=== PATIENT | male | born 1975 | race Caucasian/White ===

== ENCOUNTER 2019-03-11 21:05 | Emergency (ER) | payer OTHER ==
[2019-03-11] MEDS ORDERED: HYDROCODONE/ACETAMINOPHEN 7.5-325 MG TABLET PO ONE (22:08)
[2019-03-11] MEDS ORDERED: CIPROFLOXACIN HCL 500 MG TABLET PO ONE (22:09)
[2019-03-11] MEDS ORDERED: DIPH/PERTUSS(ACELL)/TETANUS VAC/PF 0.5 ML SYR (>=10YO) IM ONE (22:11)
--- NOTE | 2019-03-11 22:11 | ER Document Report ---
ED Medical Screen (RME) - General Chief Complaint: Puncture Wound Stated Complaint: FOOT INJURY Time Seen by Provider: 03/11/19 22:08 Notes: Patient is a 43-year-old male who comes in today with chief complaint of redness and swelling in his right foot. Apparently he stepped on #8 nail about 4 days ago and extracted the nail by himself and continue to work on it. Coming in today because he is having increased swelling redness warmth and worsening pain. Worried about infection. Last tetanus was possibly 2011 but not sure. I have treated and performed a rapid initial assessment of this patient. A comprehensive ED assessment and evaluation of the patient, analysis of test results and completion of medical decision making process will be conducted by additional ED providers. PHYSICAL EXAMINATION: GENERAL: Well-appearing, well-nourished and in no acute distress. A&Ox4. Answers questions appropriately. LUNGS: Breath sounds clear to auscultation bilaterally and equal. No wheezes rales or rhonchi. HEART: Regular rate and rhythm without murmurs, rubs, gallops. Extremities: There is evidence of a puncture wound of the right foot. The dorsum of the right foot is red warm and diffusely tender. There is no subcut aneous crepitus noted NEUROLOGICAL: Normal speech, normal gait. PSYCH: Normal mood, normal affect. TRAVEL OUTSIDE OF THE [place] IN LAST 30 DAYS: No Physical Exam - Vital signs Vitals: Temp Pulse Resp BP Pulse Ox 98.0 F 102 H 20 139/84 H 97 03/11/19 21:24 03/11/19 21:24 03/11/19 21:24 03/11/19 21:24 03/11/19 21:24 Course - Vital Signs Vital signs: Temp Pulse Resp BP Pulse Ox 98.0 F 102 H 20 139/84 H 97 03/11/19 21:24 03/11/19 21:24 03/11/19 21:24 03/11/19 21:24 03/11/19 21:24
--- NOTE | 2019-03-11 23:43 | RADIOLOGY REPORT (SQ) ---
EXAM DESCRIPTION: XR FOOT 3 OR MORE VIEWS COMPLETED DATE/TME: 03/11/2019 22:08 CLINICAL HISTORY: 43 years, Male, r/o fb, osteo COMPARISON: None. NUMBER OF VIEWS: Three TECHNIQUE: Frontal, oblique, and lateral radiographs of the left foot were obtained. LIMITATIONS: None. FINDINGS: Mild first MTP joint arthrosis is noted, designated by joint space narrowing. Focal soft tissue swelling is noted about the plantar surface of the forefoot. Otherwise, no acute fracture or dislocation is evident. There is no evidence of periostitis or cortical resorption of bone. No obvious retained radiopaque foreign body is evident. 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 Specifically, no radiographic evidence of osteomyelitis. No definite retained radiopaque foreign body. However, not all foreign bodies are radiopaque. copyright 2010 [employer] All Rights Reserved
[2019-03-12] MEDS ORDERED: CEFTRIAXONE INJ 1000 MG VIAL IM ONE (00:51)
[2019-03-12] MEDS ORDERED: LIDOCAINE 1% INJ-PF (10 MG/ML) 30 ML SDV INJ ONE (00:51)
[2019-03-12] MEDS ORDERED: DOXYCYCLINE HYCLATE 100 MG TABLET PO ONE (01:06)
--- NOTE | 2019-03-12 01:06 | ER Document Report ---
ED Wound - General Chief Complaint: Puncture Wound Stated Complaint: FOOT INJURY Time Seen by Provider: 03/11/19 22:08 Notes: Patient is a 43-year-old male who comes to the emergency department for chief complaint of puncture wound underneath the left foot which happened 4 days ago. This was through his shoe. The puncture was from a nail. Patient states that he has developed redness and some swelling and pain to the foot. He denies discolored discharge, fever/chills. He is not a diabetic. His tetanus is not up-to-date. He denies any other complaints. Daughter at bedside. TRAVEL OUTSIDE OF THE [place] IN LAST 30 DAYS: No - Related Data Allergies/Adverse Reactions: No Known Allergies Allergy (Unverified 03/12/19 01:11) Past Medical History - General Information source: Patient - Social History Smoking Status: Current Every Day Smoker Smoking Education Provided: Yes - <3 min Drug Abuse: None Lives with: Family Family History: Reviewed & Not Pertinent Patient has suicidal ideation: No Patient has homicidal ideation: No Renal/ Medical History: Denies: Hx Peritoneal Dialysis - Immunizations Immunizations up to date: Yes Hx Diphtheria, Pertussis, Tetanus Vaccination: Yes Review of Systems - Review of Systems Constitutional: No symptoms reported EENT: No symptoms reported Cardiovascular: No symptoms reported Respiratory: No symptoms reported Gastrointestinal: No symptoms reported Genitourinary: No symptoms reported Male Genitourinary: No symptoms reported Musculoskeletal: See HPI Skin: See HPI Hematologic/Lymphatic: No symptoms reported Neurological/Psychological: No symptoms reported Physical Exam - Vital signs Vitals: Temp Pulse Resp BP Pulse Ox 98.0 F 102 H 20 139/84 H 97 03/11/19 21:24 03/11/19 21:24 03/11/19 21:24 03/11/19 21:24 03/11/19 21:24 - Notes Notes: GENERAL: Alert, interacts well. No acute distress. HEAD: Normocephalic, atraumatic. EYES: Pupils equal, round, and reactive to light. Extraocular movements intact. ENT: Oral mucosa moist, tongue midline. Oropharynx unremarkable. Airway patent. Nares patent, no nasal septal hematoma, TM's intact. NECK: Full range of motion. Supple. Trachea midline. LUNGS: Clear to auscultation bilaterally, no wheezes, rales, or rhonchi. No respiratory distress. HEART: Regular rate and rhythm. No murmur ABDOMEN: Soft, non-tender. Non-distended. Bowel sounds present in all 4 quadrants. GENITOURINARY: Deferred EXTREMITIES: Left foot with a healed puncture wound underneath the MCP area of the great toe over the dorsal aspect of the foot. There is some surrounding redness and minimal tenderness, there is no induration or fluctuance. There is redness and some slight swelling noted to the toes and over the dorsal aspect of the foot but not extending to the ankle. Patient with full range of motion of all the toes, at the ankle, and of the knee. Normal capillary refill and sensation. Otherwise unremarkable exam. BACK: no cervical, thoracic, lumbar midline tenderness. No saddle anesthesia, normal distal neurovascular exam. NEUROLOGICAL: Alert and oriented x3. Normal speech. . PSYCH: Normal affect, normal mood. SKIN: Warm, dry, normal turgor. No rashes or lesions noted. Course - Re-evaluation Re-evalutation: Patient with obvious cellulitis and some soft tissue swelling of the foot. X- ray with no foreign body or fracture. There is no induration or fluctuance. No purulent drainage. Patient does not have a fever. When I evaluated the patient patient is already asking to leave. He does not have a fever. He declines laboratory evaluation or admission to the hospital. I discussed that his infection is concerning and that if he is discharged she will need to take his antibiotics and have very strict return precautions. Patient states that he will perform this. Given dose of Rocephin and doxycycline here, given dose of Cipro because this went through his shoe. Discussed expectations and return precautions in detail. Discussed with Dr. Haro. Patient states understanding and agreement. - Vital Signs Vital signs: Temp Pulse Resp BP Pulse Ox 97.6 F 78 17 141/79 H 98 03/12/19 01:21 03/12/19 01:21 03/12/19 01:21 03/12/19 01:21 03/12/19 01:21 Discharge - Discharge Clinical Impression: Cellulitis of left foot, Puncture wound of skin from metal nail Condition: Stable Disposition: HOME, SELF-CARE Additional Instructions: Your x-ray does not show concerning abnormalities with the foot. However your examination shows cellulitis infection of the foot. I recommend that you elevate your foot, keep clean, take both of the antibiotics as prescribed. Avoid significant straining or physical activity while taking the Cipro, avoid drinking milk while taking this as well. Follow-up with primary care. Stop smoking. Return if you worsen in any way including spreading redness, increased swelling or pain, fever/chills, or any other concerning symptoms. Prescriptions: Ciprofloxacin HCl [Cipro 500 mg Tablet] 500 mg PO BID #14 tablet Doxycycline Hyclate 100 mg PO BID #14 capsule
[2019-03-12 01:23] VITALS: BP 141/79
== END 2019-03-12 01:23 | disposition home or self-care (01) ==
LOC: ER 21:05
DX: S91.332A Puncture wound without foreign body, left foot, initial encounter (principal); L03.116 Cellulitis of left lower limb; W45.0XXA Nail entering through skin, initial encounter; F17.200 Nicotine dependence, unspecified, uncomplicated
CPT/HCPCS: 99283; 96372; 90471; 73630; 90715; J3490; J0696